=== PATIENT | female | born 1980 | race Caucasian/White ===

== ENCOUNTER 2024-07-29 08:57 | Day surgery (SDC) | payer MEDICARE, OTHER ==
[~2024-07-29] VITALS: Ht 162.6 cm; Wt 76.3 kg
[~2024-07-29 08:57] MED LIST: LIDOCAINE/PF 2% 5 ML VIAL ONE; PROPOFOL 1% 20 ML VIAL IVP ONE; SODIUM CHLORIDE 0.9% 1,000 ML ONE
[2024-07-29] MEDS: SODIUM CHLORIDE 0.9% 1,000 ML IV ONE (10:47)
== END 2024-07-29 12:35 | disposition home or self-care (01) ==
LOC: SURGERY 08:57
PROVIDERS: ATTEND Internal Medicine Gastroenterology
DX: R19.5 Other fecal abnormalities (principal); D12.2 Benign neoplasm of ascending colon; Z85.038 Personal history of other malignant neoplasm of large intestine; K64.8 Other hemorrhoids; Z90.49 Acquired absence of other specified parts of digestive tract
CPT/HCPCS: 45385; 45381; 84703; 36415; 88305; J2704; J3490; J7030